=== PATIENT | female | born 1970 | race American Indian/Alaskan Native ===

== ENCOUNTER 2023-08-22 02:15 | Emergency (ER) | payer OTHER, MEDICAID | END 2023-08-22 03:05 | disposition left against medical advice (07) | LOC: DL.ED 02:15 | DX: F10.120 Alcohol abuse with intoxication, uncomplicated (principal); F17.210 Nicotine dependence, cigarettes, uncomplicated; V59.50XA Passenger in pick-up truck or van injured in collision with unspecified motor vehicles in traffic accident, initial encounter; Y90.9 Presence of alcohol in blood, level not specified | CPT/HCPCS: 99283 ==